=== PATIENT | male | born 2000 | race Hispanic/Latino ===

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

== ENCOUNTER 2020-02-21 10:32 | Emergency (ER) | payer OTHER, SELFPAY ==
--- OUTSIDE RECORDS SUMMARY | 2020-02-21 10:36 | XMS REPORT ---
:2000 [facility] Address [address] [place] [address] [address] [place] [address] Care Team Providers Name Role Phone Unavailable Unavailable Unavailable Problems This patient has no known problems. Allergies, Adverse Reactions, Alerts This patient has no known allergies or adverse reactions. Medications This patient has no known medications. Encounters Start End Encounter Admission Attending Care Care Encounter Date/Time Date/Time Type Type Clinicians Facility Department ID 2019-03-26 2019-03-26 Emergency E [id number] 22:57:00 22:57:00
--- NOTE | 2020-02-21 11:08 | ER ---
Nurse's Notes [facility] Name: Donta Duran Age: 19 yrs Sex: Male : 2000 Arrival Date: 02/21/2020 Time: 10:38 Bed 7 Private MD: Diagnosis: Asthma Presentation: 02/20 10:47 Chief complaint: Patient states: "Was at work, and I felt like I couldn't pull enough ca1 air into my lungs. I have asthma. I felt dizzy too. Called my utilization supervisor, he told me to go get checked by a doctor and be cleared to go back to work". Pt reports, he is out of his inhaler for his asthma. Denies fever, cough and congestion. Coronavirus screen: Patient reports a subjective fever or greater than 100.4F, or cough, or shortness of breath, or difficulty breathing. Surgical mask placed on patient. Patient moved to private room, placed in contact and droplet isolation with eye protection until further assessment. Patient denies travel on a cruise ship or to a country the [facility] currently lists as an affected area. Patient denies contact with known and/or suspected case of COVID-19. Ebola Screen: Patient negative for fever greater than or equal to 101.5 degrees Fahrenheit, and additional compatible Ebola Virus Disease symptoms Patient denies exposure to infectious person. Patient denies travel to an Ebola-affected area in the 21 days before illness onset. No symptoms or risks identified at this time. Initial Sepsis Screen: Does the patient meet any 2 criteria? No. Patient's initial sepsis screen is negative. Does the patient have a suspected source of infection? No. Patient's initial sepsis screen is negative. Risk Assessment: Do you want to hurt yourself or someone else? Patient reports no desire to harm self or others. Onset of symptoms was February 21, 2020. 10:47 Method Of Arrival: Ambulatory ca1 10:47 Acuity: KENYATTA 4 ca1 Historical: - Allergies: 10:51 No Known Allergies; ca1 - Home Meds: 10:51 inhaler use as PRN [Active]; ca1 - PMHx: 10:51 Asthma; ca1 - PSHx: 10:51 Tonsillectomy; Adenoids; ca1 - Immunization history:: Adult Immunizations up to date, Flu vaccine is not up to date. - Social history:: Smoking status: Patient denies any tobacco usage or history of. Vital Signs: 10:47 BP 143 / 96; Pulse 86; Resp 17 S; Temp 97.4(TE); Pulse Ox 100% on R/A; Weight 108.86 kg ca1 (R); Height 5 ft. 8 in. (172.72 cm) (R); Pain 0/10; 10:47 Body Mass Index 36.49 (108.86 kg, 172.72 cm) ca1 ED Course: 10:38 Patient arrived in ED. mr 10:50 Muna Farmer FNP-C [facility]. snw 10:50 Dandre Ma MD is Attending Physician. snw 10:50 Triage completed. ca1 10:51 Arm band placed on right wrist. ca1 12:05 Gloria Burroughs, MARIA ANTONIA is Primary Nurse. sv Administered Medications: No medications were administered Outcome: 11:07 Discharge ordered by . snw 12:05 Patient left the ED. sv Signatures: Gloria Burroughs RN RN Muna Farmer FNP-C FNP-[facility] Raine Crockett mr FloraNubia RN RN ca1
--- NOTE | 2020-02-21 11:08 | EDPHYS ---
Physician Documentation [facility] Name: Donta Duran Age: 19 yrs Sex: Male : 2000 Arrival Date: 02/21/2020 Time: 10:38 Bed 7 Private MD: ED Physician Dandre Ma HPI: 02/20 11:13 This 19 yrs old Male presents to ER via Ambulatory with complaints of snw Breathing Difficulty. 11:13 The patient has shortness of breath at rest. Onset: The symptoms/episode began/occurred snw suddenly. Duration: The symptoms are intermittent. Associated signs and symptoms: Pertinent positives: non-productive cough. Severity of symptoms: At their worst the symptoms were very mild mild. The patient has experienced similar episodes in the past. Historical: - Allergies: 10:51 No Known Allergies; ca1 - Home Meds: 10:51 inhaler use as PRN [Active]; ca1 - PMHx: 10:51 Asthma; ca1 - PSHx: 10:51 Tonsillectomy; Adenoids; ca1 - Immunization history:: Adult Immunizations up to date, Flu vaccine is not up to date. - Social history:: Smoking status: Patient denies any tobacco usage or history of. ROS: 11:12 Constitutional: Negative for fever, chills, and weight loss, Eyes: Negative for injury, snw pain, redness, and discharge, ENT: Negative for injury, pain, and discharge, Neck: Negative for injury, pain, and swelling, Cardiovascular: Negative for chest pain, palpitations, and edema, Abdomen/GI: Negative for abdominal pain, nausea, vomiting, diarrhea, and constipation, Back: Negative for injury and pain, : Negative for injury, bleeding, discharge, and swelling, MS/Extremity: Negative for injury and deformity, Skin: Negative for injury, rash, and discoloration, Neuro: Negative for headache, weakness, numbness, tingling, and seizure, Psych: Negative for depression, anxiety, suicide ideation, homicidal ideation, and hallucinations. 11:12 Respiratory: Positive for cough, with no reported sputum, shortness of breath, at rest. wheezing. Exam: 11:12 Constitutional: This is a well developed, well nourished patient who is awake, alert, snw and in no acute distress. Head/Face: Normocephalic, atraumatic. Eyes: Pupils equal round and reactive to light, extra-ocular motions intact. Lids and lashes normal. Conjunctiva and sclera are non-icteric and not injected. Cornea within normal limits. Periorbital areas with no swelling, redness, or edema. ENT: Nares patent. No nasal discharge, no septal abnormalities noted. Tympanic membranes are normal and external auditory canals are clear. Oropharynx with no redness, swelling, or masses, exudates, or evidence of obstruction, uvula midline. Mucous membranes moist. Neck: Trachea midline, no thyromegaly or masses palpated, and no cervical lymphadenopathy. Supple, full range of motion without nuchal rigidity, or vertebral point tenderness. No Meningismus. Chest/axilla: Normal chest wall appearance and motion. Nontender with no deformity. No lesions are appreciated. Cardiovascular: Regular rate and rhythm with a normal S1 and S2. No gallops, murmurs, or rubs. Normal PMI, no JVD. No pulse deficits. Respiratory: Lungs have equal breath sounds bilaterally, clear to auscultation and percussion. No rales, rhonchi or wheezes noted. No increased work of breathing, no retractions or nasal flaring. Abdomen/GI: Soft, non-tender, with normal bowel sounds. No distension or tympany. No guarding or rebound. No evidence of tenderness throughout. Back: No spinal tenderness. No costovertebral tenderness. Full range of motion. Skin: Warm, dry with normal turgor. Normal color with no rashes, no lesions, and no evidence of cellulitis. MS/ Extremity: Pulses equal, no cyanosis. Neurovascular intact. Full, normal range of motion. Neuro: Awake and alert, GCS 15, oriented to person, place, time, and situation. Cranial nerves II-XII grossly intact. Motor strength 5/5 in all extremities. Sensory grossly intact. Cerebellar exam normal. Normal gait. Psych: Awake, alert, with orientation to person, place and time. Behavior, mood, and affect are within normal limits. Vital Signs: 10:47 BP 143 / 96; Pulse 86; Resp 17 S; Temp 97.4(TE); Pulse Ox 100% on R/A; Weight 108.86 kg ca1 (R); Height 5 ft. 8 in. (172.72 cm) (R); Pain 0/10; 10:47 Body Mass Index 36.49 (108.86 kg, 172.72 cm) ca1 MDM: 10:54 Patient medically screened. snw 11:13 Data reviewed: vital signs, nurses notes. Data interpreted: Pulse oximetry: on room air snw is 100 %. Interpretation: normal. Counseling: I had a detailed discussion with the patient and/or guardian regarding: the historical points, exam findings, and any diagnostic results supporting the discharge/admit diagnosis, the presence of at least one elevated blood pressure reading (>120/80) during this emergency department visit, the need for outpatient follow up, to return to the emergency department if symptoms worsen or persist or if there are any questions or concerns that arise at home. Special discussion: Based on the history and exam findings, there is no indication for further emergent testing or inpatient evaluation. I discussed with the patient/guardian the need to see the primary care provider for further evaluation of the symptoms. 11:42 ED course: Quarantine x 14 days as recommended by Reanna Rivera. snw Administered Medications: No medications were administered Disposition: 12:16 Co-signature as Attending Physician, Dandre Ma MD. rn Disposition: 02/21/20 11:07 Discharged to Home. Impression: Asthma. - Condition is Stable. - Discharge Instructions: Asthma, Adult, Asthma Attack Prevention, Adult. - Prescriptions for Albuterol Sulfate 90 mcg/actuation - inhale 1-2 puff by INHALATION route every 4-6 hours; 1 Inhaler. - Medication Reconciliation Form, Thank You Letter, Antibiotic Education, Prescription Opioid Use form. - Follow up: Emergency Department; When: As needed; Reason: Worsening of condition. Follow up: Private Physician; When: 2 - 3 days; Reason: Recheck today's complaints, Continuance of care, Re-evaluation by your physician. - Notes: Quarantine x 2 weeks as suggested during pandemic Signatures: Gloria Burroughs RN RN Muna Allen, SOFT WORK CIGAR MACHINE OPERATOR-C SOFT WORK CIGAR MACHINE OPERATOR-Andersw Dandre Ma MD MD rn FredrickobNubia RN RN ca1 Corrections: (The following items were deleted from the chart) 12:05 11:07 02/21/2020 11:07 Discharged to Home. Impression: Asthma. Condition is Stable. sv Forms are Medication Reconciliation Form, Thank You Letter, Antibiotic Education, Prescription Opioid Use. Follow up: Emergency Department; When: As needed; Reason: Worsening of condition. Follow up: Private Physician; When: 2 - 3 days; Reason: Recheck today's complaints, Continuance of care, Re-evaluation by your physician. snw
[2020-02-21 12:11] VITALS: BP 143/96; TEMP 97.4; O2SAT 100
== END 2020-02-21 12:05 | disposition home or self-care (01) ==
LOC: ER 10:32
DX: J45.909 Unspecified asthma, uncomplicated (principal)
CPT/HCPCS: 99281

== ENCOUNTER 2020-08-21 18:25 | Emergency (ER) | payer OTHER ==
--- OUTSIDE RECORDS SUMMARY | 2020-08-21 18:27 | XMS REPORT | Clinical Summary ---
:2000 Author Organization [facility] Address [address] [place] [address] Care Team Providers Name Role Phone Asked, No Pcp Primary Care Provider Unavailable Allergies No Known Active Allergies Medications No known medications Active Problems Not on file Social History Tobacco Use Types Packs/Day Years Used Date Never Smoker Smokeless Tobacco: Never Used Alcohol Use Drinks/Week oz/Week Comments No Alcohol Habits Answer Date Recorded How often do you have a drink containing alcohol? Never 01/26/2019 How many drinks containing alcohol do you have on a typical Not asked day when you are drinking? How often do you have six or more drinks on one occasion? No t asked Sex Assigned at Date Recorded Not on file Last Filed Vital Signs Not on file Plan of Treatment Health Maintenance Due Date Last Done Comments INFLUENZA VACCINE 08/01/2020 Results Not on fileafter 08/21/2019 Advance Directives For more information, please contact: [phone] Type Date Recorded Patient Senior It Recruiter Explanati on Advance Directives, Living Will 01/25/2019 11:43 PM and Medical Power of Data Conversion Operator
--- OUTSIDE RECORDS SUMMARY | 2020-08-21 18:27 | XMS REPORT | Continuity of Care Document ---
:2000 Author Organization [facility] t Address [address] [place] [address] Care Team Providers Name Role Phone Asked, No Pcp Primary Care Physician Unavailable Pcp, Does Not Have A Attending Clinician Problems This patient has no known problems. Allergies, Adverse Reactions, Alerts This patient has no known allergies or adverse reactions. Social History Social Habit Start Date Stop Date Quantity Comments Source History [facility] odist Alcohol Std Drinks History [facility] Alcohol Binge Sex Assigned At [facility] ethodist Tobacco use and 2019-01-26 2019-01-26 Never used [facility]ist exposure 00:00:00 00:00:00 Alcohol intake 2019-01-26 2019-01-[address] [facility] thodist 00:00:00 00:00:00 non-drinker of alcohol (finding) History [facility] 2019-01-26 2019-01-26 1 [place] [facility] Alcohol Frequency 00:00:00 00:00:00 Smoking Status Start Date Stop Date Source [facility] sm[facility] Medications This patient has no known medications. Procedures This patient has no known procedures. Plan of Care Planned Activity Planned Date Details Comments Source Future Scheduled 2020-08-01 INFLUENZA VACCINE Ben Estrada Test 00:00:00 [code = INFLUENZA VACCINE] Encounters Start End Encounter Admission Attending Care Care Encounter Source Date/Time Date/Time Type Type Clinicians Facility Department ID 2020-02-24 2020-02-24 Nurse PcpMIKE [id number] 00:00:00 00:00:00 Triage Patient EDWINA [id number] Does Not HOSPITAL [id number] Have A [id number] 2019-03-26 2019-03-26 Emergency E MHBL [facility]BL [id number] 22:57:00 22:57:00 Results This patient has no known results.
[2020-08-21 19:20] LABS: Absolute Lymphocytes (CBC) 2.9 K/uL (0.7-4.9); Basophils % 0.6 % (0-1.3); Hematocrit 46.8 % (39.6-49.0); Lymphocytes % 26.8 % (15.3-44.8); MPV 8.2 fL (7.6-11.3); RBC Red Blood Cell Count 5.58 M/uL (4.33-5.43)
[2020-08-21 19:30] LABS: Urine Blood NEGATIVE (NEG); Urine Glucose NEGATIVE (NEG); Urine Protein NEGATIVE (NEG); Urine Specific Gravity 1.025 (1.005-1.030)
[2020-08-21 19:39] LABS: ALT/SGPT 51 U/L (12-78); AST/SGOT 22 U/L (15-37); Albumin 3.9 g/dL (3.4-5.0); Alkaline Phosphatase 87 U/L (45-117); BUN Blood Urea Nitrogen 13 mg/dL (7-18); Bicarbonate 25 mmol/L (21-32); Bilirubin Direct < 0.1 mg/dL (0-0.2); Bilirubin Total 0.5 mg/dL (0.2-1.0); Glucose Level 120 mg/dL (74-106); Lipase 127 U/L (73-393); Potassium 4.1 mmol/L (3.5-5.1); Protein, Total 8.5 g/dL (6.4-8.2); Sodium Level 139 mmol/L (136-145)
[2020-08-21 19:48] LABS: Urine Bacteria <20 /HPF (NONE SEEN); Urine Culture Reflex Order NOT NEEDED; Urine RBC <5 /HPF (NONE SEEN)
--- NOTE | 2020-08-21 20:08 | EDPHYS ---
Physician Documentation [facility] Name: Donta Duran Age: 20 yrs Sex: Male : 2000 Arrival Date: 08/21/2020 Time: 18:27 Bed 14 Private MD: ED Physician Dandre Ma HPI: 08/21 20:08 This 20 yrs old Male presents to ER via Ambulatory with complaints of jr8 Diarrhea, Nausea, Penile Pain. 20:08 The patient presents to the emergency department with nausea, diarrhea. Onset: The jr8 symptoms/episode began/occurred gradually, 1 week(s) ago. Possible causes: unknown. The symptoms are aggravated by food , The symptoms are alleviated by nothing. Associated signs and symptoms: Pertinent positives: dysuria. Severity of symptoms: At their worst the symptoms were mild in the emergency department the symptoms are unchanged. The patient has not experienced similar symptoms in the past. The patient has not recently seen a physician. Stated that the pain and dysuria has resolved but still with diarrhea that has been persistent for over a week now . Historical: - Allergies: 18:40 No Known Allergies; ca1 - Home Meds: 18:40 inhaler use as PRN [Active]; ca1 - PMHx: 18:40 Asthma; ca1 - PSHx: 18:40 Tonsillectomy; Adenoids; ca1 - Immunization history:: Adult Immunizations up to date. - Social history:: Smoking status: Patient denies any tobacco usage or history of. ROS: 20:08 Eyes: Negative for injury, pain, redness, and discharge, ENT: Negative for injury, jr8 pain, and discharge, Neck: Negative for injury, pain, and swelling, Cardiovascular: Negative for chest pain, palpitations, and edema, Respiratory: Negative for shortness of breath, cough, wheezing, and pleuritic chest pain, Back: Negative for injury and pain, MS/Extremity: Negative for injury and deformity, Skin: Negative for injury, rash, and discoloration, Neuro: Negative for headache, weakness, numbness, tingling, and seizure. 20:08 Abdomen/GI: Positive for nausea, diarrhea, abdominal cramps, Negative for vomiting, hematemesis, black/tarry stool, rectal pain, rectal bleeding, bowel incontinence, flatulence. 20:08 : Positive for urinary symptoms. Exam: 20:08 Constitutional: This is a well developed, well nourished patient who is awake, alert, jr8 and in no acute distress. Cardiovascular: Regular rate and rhythm with a normal S1 and S2. No gallops, murmurs, or rubs. Normal PMI, no JVD. No pulse deficits. Respiratory: Lungs have equal breath sounds bilaterally, clear to auscultation and percussion. No rales, rhonchi or wheezes noted. No increased work of breathing, no retractions or nasal flaring. Abdomen/GI: Soft, non-tender, with normal bowel sounds. No distension or tympany. No guarding or rebound. No evidence of tenderness throughout. Back: No spinal tenderness. No costovertebral tenderness. Full range of motion. Skin: Warm, dry with normal turgor. Normal color with no rashes, no lesions, and no evidence of cellulitis. MS/ Extremity: Pulses equal, no cyanosis. Neurovascular intact. Full, normal range of motion. Neuro: Awake and alert, GCS 15, oriented to person, place, time, and situation. Cranial nerves II-XII grossly intact. Motor strength 5/5 in all extremities. Sensory grossly intact. Cerebellar exam normal. Normal gait. Vital Signs: 18:36 BP 162 / 98; Pulse 92; Resp 16 S; Temp 98.8(O); Pulse Ox 98% on R/A; Weight 108.86 kg ca1 (R); Height 5 ft. 8 in. (172.72 cm) (R); Pain 4/10; 20:00 BP 138 / 69; Pulse 76; Resp 16; Temp 98.1; Pulse Ox 99% on R/A; Pain 5/10; fu 18:36 Body Mass Index 36.49 (108.86 kg, 172.72 cm) ca1 MDM: 18:47 Patient medically screened. jr8 20:06 Data reviewed: vital signs, nurses notes, lab test result(s), and as a result, I will [facility] discharge patient. Data interpreted: Pulse oximetry: on room air is 98 %. Interpretation: normal. Counseling: I had a detailed discussion with the patient and/or guardian regarding: the historical points, exam findings, and any diagnostic results supporting the discharge/admit diagnosis, lab results, the need for outpatient follow up, a steam tender, to return to the emergency department if symptoms worsen or persist or if there are any questions or concerns that arise at home. Special discussion: Based on the patient's Hx, exam, and Dx evaluation, there is no indication for emergent surgery or inpatient Tx. It is understood by the patient/guardian that if the Sx's persist or worsen they need to return immediately for re-evaluation. 08/21 18:47 Order name: Basic Metabolic Panel; Complete Time: 20:06 08/21 18:47 Order name: CBC with Diff; Complete Time: 20:06 08/21 18:47 Order name: Hepatic Function; Complete Time: 20:06 08/21 18:47 Order name: Lipase; Complete Time: 20:06 08/21 18:47 Order name: Urine Microscopic Only; Complete Time: 20:08/21 19:12 Order name: Urine Dipstick--Ancillary (enter results); Complete Time: 20: tt3 08/21 18:47 Order name: IV Saline Lock; Complete Time: 19:12 08/21 18:47 Order name: Labs collected and sent; Complete Time: 19:12 08/21 18:47 Order name: Urine Dipstick-Ancillary (obtain specimen); Complete Time: 19:12 Administered Medications: No medications were administered Disposition: 08/22 07:03 Co-signature as Attending Physician, Dandre Ma MD. rn Disposition: 08/21/20 20:07 Discharged to Home. Impression: Diarrhea, unspecified, Nausea, Gastroenteritis. - Condition is Stable. - Discharge Instructions: Food Choices to Help Relieve Diarrhea, Adult, Diarrhea, Adult, Nausea and Vomiting, Adult. - Prescriptions for Bentyl 20 mg Oral Tablet - take 1 tablet by ORAL route every 6 hours As needed; 20 tablet. Cipro 500 mg Oral Tablet - take 1 tablet by ORAL route every 12 hours for 10 days; 20 tablet. Flagyl 500 mg Oral Tablet - take 1 tablet by ORAL route every 6 hours for 10 days; 40 tablet. Zofran 4 mg Oral Tablet - take 1 tablet by ORAL route every 12 hours As needed; 20 tablet. - Medication Reconciliation Form, Thank You Letter, Antibiotic Education, Prescription Opioid Use form. - Follow up: Doug Sage MD; When: 1 week; Reason: If symptoms return, Recheck today's complaints, Continuance of care, Re-evaluation by your physician. - Problem is new. - Symptoms have improved. Signatures: Dispatcher [employer] EDDandre Lyons MD MD rn Roszak, Josh, PA PA jr8 Syd Smith RN RN fu Acob, Cheryl, RN RN ca1 Corrections: (The following items were deleted from the chart) 08/21 20:08 20:07 08/21/2020 20:07 Discharged to Home. Impression: Diarrhea, unspecified; Nausea. jr8 Condition is Stable. Forms are Medication Reconciliation Form, Thank You Letter, Antibiotic Education, Prescription Opioid Use. Follow up: Doug Sage; When: 1 week; Reason: If symptoms return, Recheck today's complaints, Continuance of care, Re-evaluation by your physician. Problem is new. Symptoms have improved. jr8 20:29 20:08 08/21/2020 20:07 Discharged to Home. Impression: Diarrhea, unspecified; Nausea; fu Gastroenteritis. Condition is Stable. Discharge Instructions: Food Choices to Help Relieve Diarrhea, Adult, Diarrhea, Adult, Nausea and Vomiting, Adult. Prescriptions for Bentyl 20 mg Oral Tablet - take 1 tablet by ORAL route every 6 hours As needed; 20 tablet, Cipro 500 mg Oral Tablet - take 1 tablet by ORAL route every 12 hours for 10 days; 20 tablet, Flagyl 500 mg Oral Tablet - take 1 tablet by ORAL route every 6 hours for 10 days; 40 tablet, Zofran 4 mg Oral Tablet - take 1 tablet by ORAL route every 12 hours As needed; 20 tablet. and Forms are Medication Reconciliation Form, Thank You Letter, Antibiotic Education, Prescription Opioid Use. Follow up: Doug Sage; When: 1 week; Reason: If symptoms return, Recheck today's complaints, Continuance of care, Re-evaluation by your physician. Problem is new. Symptoms have improved. jr8
--- NOTE | 2020-08-21 20:08 | ER ---
Nurse's Notes [facility] Name: Donta Duran Age: 20 yrs Sex: Male : 2000 Arrival Date: 08/21/2020 Time: 18:27 Bed 14 Private MD: Diagnosis: Diarrhea, unspecified;Nausea;Gastroenteritis Presentation: 08/21 18:36 Chief complaint: Patient states: Nausea and diarrhea x 1 week. Lower abdominal pain x 1 ca1 week. R Testicular pain x 1 week, denies swelling on the scrotum. Coronavirus screen: Client denies travel out of the [place] in the last 14 days. At this time, the client does not indicate any symptoms associated with coronavirus-19. Ebola Screen: Patient negative for fever greater than or equal to 101.5 degrees Fahrenheit, and additional compatible Ebola Virus Disease symptoms Patient denies exposure to infectious person. Patient denies travel to an Ebola-affected area in the 21 days before illness onset. No symptoms or risks identified at this time. Initial Sepsis Screen: Does the patient meet any 2 criteria? No. Patient's initial sepsis screen is negative. Does the patient have a suspected source of infection? No. Patient's initial sepsis screen is negative. Risk Assessment: Do you want to hurt yourself or someone else? Patient reports no desire to harm self or others. Onset of symptoms was August 21, 2020. 18:36 Method Of Arrival: Ambulatory ca1 18:36 Acuity: KENYATTA 3 ca1 Historical: - Allergies: 18:40 No Known Allergies; ca1 - Home Meds: 18:40 inhaler use as PRN [Active]; ca1 - PMHx: 18:40 Asthma; ca1 - PSHx: 18:40 Tonsillectomy; Adenoids; ca1 - Immunization history:: Adult Immunizations up to date. - Social history:: Smoking status: Patient denies any tobacco usage or history of. Screenin:13 Abuse screen: Denies threats or abuse. Denies injuries from another. Nutritional mg2 screening: No deficits noted. Tuberculosis screening: No symptoms or risk factors identified. Fall Risk IV access (20 points). Assessment: 19:12 General: Appears in no apparent distress. comfortable, Behavior is calm, cooperative. mg2 Pain:. Neuro: Level of Consciousness is awake, alert, obeys commands, Oriented to person, place, time, situation. Cardiovascular: Capillary refill < 3 seconds Patient's skin is warm and dry. Respiratory: Airway is patent Respiratory effort is even, unlabored, Respiratory pattern is regular, symmetrical. GI: Abdomen is non-distended, Reports diarrhea, nausea, vomiting, since 1 week ago. EENT: No signs and/or symptoms were reported regarding the EENT system. Derm: Skin is intact, is healthy with good turgor, Skin is pink, warm \T\ dry. normal. Musculoskeletal: Circulation, motion, and sensation intact. Capillary refill < 3 seconds. Vital Signs: 18:36 BP 162 / 98; Pulse 92; Resp 16 S; Temp 98.8(O); Pulse Ox 98% on R/A; Weight 108.86 kg ca1 (R); Height 5 ft. 8 in. (172.72 cm) (R); Pain 4/10; 20:00 BP 138 / 69; Pulse 76; Resp 16; Temp 98.1; Pulse Ox 99% on R/A; Pain 5/10; fu 18:36 Body Mass Index 36.49 (108.86 kg, 172.72 cm) ca1 ED Course: 18:27 Patient arrived in ED. ds1 18:39 Triage completed. ca1 18:40 Arm band placed on right wrist. ca1 18:45 Juanis Hartmann, MARIA ANTONIA is Primary Nurse. ll1 18:45 Anupam Gandhi PA is PHCP. jr8 18:46 Dandre Ma MD is Attending Physician. jr8 19:13 Patient has correct armband on for positive identification. mg2 19:13 No provider procedures requiring assistance completed. Inserted saline lock: 20 gauge mg2 in right antecubital area, using aseptic technique. Blood collected. 20:07 Doug Sage MD is Referral Physician. jr8 20:20 IV discontinued, bleeding controlled, Pressure dressing applied. fu Administered Medications: No medications were administered Outcome: 20:07 Discharge ordered by . jr8 20:20 Discharged to home ambulatory. fu 20:20 Condition: good 20:20 Discharge instructions given to patient, Instructed on discharge instructions, follow fu up and referral plans. Demonstrated understanding of instructions, Prescriptions given X 2, 4. 20:29 Patient left the ED. fu Signatures: Yareli Warren ds1 Anupam Gandhi PA PA jr8 Syd Smith, RN Manuel Ohara RN MARIA ANTONIA mg2 Nubia Hines RN MARIA ANTONIA ca1 Juanis Hartmann RN RN ll1 Corrections: (The following items were deleted from the chart) 08/22 03:01 08/21 20:20 Discharge instructions given to patient, Instructed on discharge fu instructions, follow up and referral plans. Demonstrated understanding of instructions, Prescriptions given X 2, fu
[2020-08-21 20:34] VITALS: BP 162/98; TEMP 98.8; O2SAT 98
== END 2020-08-21 20:29 | disposition home or self-care (01) ==
LOC: ER 18:25
DX: K52.9 Noninfective gastroenteritis and colitis, unspecified (principal); R11.0 Nausea
CPT/HCPCS: 36415; 80048; 80076; 81003; 81015; 83690; 85025; 99283

== ENCOUNTER 2022-06-12 23:49 | Emergency (ER) | payer OTHER, SELFPAY ==
--- NOTE | 2022-06-13 00:39 | EDPHYS ---
Physician Documentation [facility] Name: Donta Duran Age: 21 yrs Sex: Male : 2000 Arrival Date: 06/12/2022 Time: 23:54 Bed Waiting Private MD: ED Physician Louie Brunner HPI: 06/13 00:38 This 21 yrs old Male presents to ER via Ambulatory with complaints of Sore ms3 Throat. 00:38 The patient presents with sore throat. The patient describes throat pain as burning. ms3 Onset: The symptoms/episode began/occurred 2 day(s) ago. Severity of symptoms: At their worst the symptoms were moderate, in the emergency department the symptoms are unchanged. Modifying factors: The symptoms are alleviated by nothing, the symptoms are aggravated by nothing, Patient's oral intake status: good. Associated signs and symptoms: Pertinent negatives chills, fever. Historical: - Allergies: 00:42 No Known Allergies; vc1 - Home Meds: 00:42 inhaler use as PRN [Active]; vc1 - PMHx: 00:42 Asthma; vc1 - PSHx: 00:42 Tonsillectomy; vc1 - Immunization history:: Adult Immunizations up to date, Client reports receiving the 2nd dose of the Covid vaccine. - Social history:: Smoking status: Reported history of juuling and/or vaping. ROS: 00:38 Constitutional: Negative for fever, and chills. Cardiovascular: Negative for chest ms3 pain, and palpitations. Respiratory: Negative for shortness of breath, cough, wheezing, and pleuritic chest pain, Abdomen/GI: Negative for abdominal pain, nausea, vomiting, diarrhea, and constipation, MS/Extremity: Negative for injury and deformity, Skin: Negative for injury, rash, and discoloration. 00:38 ENT: Positive for sore throat. 00:38 All other systems are negative. 00:38 ENT: Positive for nasal discharge, rhinorrhea. ms3 Exam: 00:38 Constitutional: This is a well developed, well nourished patient who is awake, alert, ms3 and in no acute distress. Eyes: Pupils equal round and reactive to light, extra-ocular motions intact. Lids and lashes normal. Conjunctiva and sclera are non-icteric and not injected. Periorbital areas with no swelling, redness, or edema. 00:38 Back: No spinal tenderness. No costovertebral tenderness. Full range of motion. Skin: Warm, dry with normal turgor. Normal color with no rashes, no lesions, and no evidence of cellulitis. Neuro: Awake and alert, GCS 15, oriented to person, place, time, and situation. Cranial nerves II-XII grossly intact. Motor strength 5/5 in all extremities. Sensory grossly intact. Cerebellar exam normal. Normal gait. Psych: Awake, alert, with orientation to person, place and time. Behavior, mood, and affect are within normal limits. 00:38 ENT: Posterior pharynx: Uvula: normal, midline, non-edematous, no erythema, swelling, is not appreciated, erythema, that is moderate, exudate, is not appreciated. Vital Signs: 00:41 Weight 133.81 kg; Height 5 ft. 8 in. (172.72 cm); Pain 8/10; vc1 00:45 BP 147 / 103; Pulse 85; Resp 18; Temp 99.2; Pulse Ox 99% on R/A; vc1 00:41 Body Mass Index 44.85 (133.81 kg, 172.72 cm) vc1 MDM: 00:28 Patient medically screened. ms3 00:38 Differential diagnosis: tonsillitis, upper respiratory infection, viral syndrome. Data ms3 reviewed: vital signs, nurses notes, and as a result, I will discharge patient. Counseling: I had a detailed discussion with the patient and/or guardian regarding: the historical points, exam findings, and any diagnostic results supporting the discharge/admit diagnosis, the need for outpatient follow up, to return to the emergency department if symptoms worsen or persist or if there are any questions or concerns that arise at home. ED course: Discussed physical exam findings with patient. Patient to follow-up with primary care physician in 2 to 3 days. Patient understands and agrees with plan. All questions were answered. Return precautions discussed include worsening symptoms, or any other concerns. . Administered Medications: No medications were administered Disposition Summary: 06/13/22 00:38 Discharge Ordered Location: Home ms3 Condition: Stable ms3 Diagnosis - Pain in throat ms3 - Acute upper respiratory infection, unspecified ms3 Followup: ms3 - With: Rodriguez, Jefe, DO - When: 2 - 3 days - Reason: Re-evaluation by your physician Discharge Instructions: - Discharge Summary Sheet ms3 - Upper Respiratory Infection, Adult ms3 Forms: - Medication Reconciliation Form ms3 - Thank You Letter ms3 - Antibiotic Education ms3 - Prescription Opioid Use ms3 - Work release form vc1 Prescriptions: - Flonase Allergy Relief 50 mcg/actuation Nasal spray,suspension - spray 2 spray by INTRANASAL route once daily as needed; 1 Unspecified; Refills: cp 0, Product Selection Permitted - Claritin 10 mg Oral Tablet - take 1 tablet by ORAL route once daily As needed; 30 tablet; Refills: 0, ms3 Product Selection Permitted Signatures: Louie Brunner DO DO ms3 Fidelina Norman, RN RN vc1
--- NOTE | 2022-06-13 00:57 | ER ---
Nurse's Notes [facility] Name: Donta Duran Age: 21 yrs Sex: Male : 2000 Arrival Date: 06/12/2022 Time: 23:54 Bed Waiting Private MD: Diagnosis: Pain in throat;Acute upper respiratory infection, unspecified Presentation: 06/13 00:41 Chief complaint: Patient states: "I came for a sore throat.". Coronavirus screen: vc1 Vaccine status: Patient reports receiving the 2nd dose of the covid vaccine. Pfizer headache, sore throat, Client presents with at least one sign or symptom that may indicate coronavirus-19. Standard/surgical mask placed on the client. Provider contacted for isolation considerations. Ebola Screen: No symptoms or risks identified at this time. Risk Assessment: Do you want to hurt yourself or someone else? Patient reports no desire to harm self or others. Onset of symptoms was June 10, 2022. 00:41 Method Of Arrival: Ambulatory vc1 00:41 Acuity: KENYATTA 3 vc1 00:41 Acuity: KENYATTA 4 vc1 Triage Assessment: 00:43 General: Appears in no apparent distress. uncomfortable, ill, Behavior is calm, vc1 cooperative, appropriate for age. Pain: Complains of pain in throat Pain does not radiate. Pain currently is 8 out of 10 on a pain scale. Quality of pain is described as sharp, Pain began suddenly. EENT: Throat Reports pain when swallowing. Neuro: No deficits noted. Cardiovascular: Patient's skin is warm and dry. Respiratory: Airway is patent Respiratory effort is even, unlabored, Respiratory pattern is regular, symmetrical. GI: No deficits noted. : No deficits noted. Derm: No deficits noted. Musculoskeletal: No deficits noted. Historical: - Allergies: 00:42 No Known Allergies; vc1 - Home Meds: 00:42 inhaler use as PRN [Active]; vc1 - PMHx: 00:42 Asthma; vc1 - PSHx: 00:42 Tonsillectomy; vc1 - Immunization history:: Adult Immunizations up to date, Client reports receiving the 2nd dose of the Covid vaccine. - Social history:: Smoking status: Reported history of juuling and/or vaping. Screenin:45 Abuse screen: Denies threats or abuse. Nutritional screening: No deficits noted. vc1 Tuberculosis screening: No symptoms or risk factors identified. Fall Risk None identified. Vital Signs: 00:41 Weight 133.81 kg; Height 5 ft. 8 in. (172.72 cm); Pain 8/10; vc1 00:45 BP 147 / 103; Pulse 85; Resp 18; Temp 99.2; Pulse Ox 99% on R/A; vc1 00:41 Body Mass Index 44.85 (133.81 kg, 172.72 cm) vc1 ED Course: 06/12 23:54 Patient arrived in ED. ja2 06/13 00:04 Louie Brunner DO is Attending Physician. ms3 00:37 Jefe Rodriguez DO is Referral Physician. ms3 00:42 Triage completed. vc1 00:42 Arm band placed on right wrist. vc1 Administered Medications: No medications were administered Outcome: 00:38 Discharge ordered by . ms3 00:57 Patient left the ED. vc1 Signatures: Louie Brunner DO DO ms3 Rebeka Vicente ja2 Fidelina Norman, RN RN vc1
[2022-06-13 01:12] VITALS: BP 147/103; TEMP 99.2; O2SAT 99
== END 2022-06-13 00:57 | disposition home or self-care (01) ==
LOC: ER 23:49
DX: J06.9 Acute upper respiratory infection, unspecified (principal); J45.909 Unspecified asthma, uncomplicated
CPT/HCPCS: 99281

== ENCOUNTER 2024-07-05 19:22 | Emergency (ER) | payer SELFPAY ==
[2024-07-05] MEDS ORDERED: DIPHENHYDRAMINE 50 MG/ML VIAL ONE (20:28)
[2024-07-05] MEDS ORDERED: NA CHLORIDE 0.9% 1,000 ML ONE (20:28)
[2024-07-05] MEDS ORDERED: METOCLOPRAMIDE 10 MG/2mL INJ ONE (20:28)
[2024-07-05] MEDS ORDERED: NA CHLORIDE 0.9% 100 ML ONE (20:28)
[2024-07-05] MEDS ORDERED: KETOROLAC 30 MG/ML INJ ONE (20:28)
--- NOTE | 2024-07-05 21:20 | RAD REPORT ---
EXAM DESCRIPTION: CT - Head Brain Wo Cont - 07/05/2024 9:04 pm CLINICAL HISTORY: Headache COMPARISON: none TECHNIQUE: Computed axial tomography of the head was obtained. IV contrast was not requested. All CT scans are performed using dose optimization technique as appropriate and may include automated exposure control or mA/KV adjustment according to patient size. FINDINGS: An intracranial bleed is not seen The ventricles are normal in caliber No significant hypodense areas within the brain visualized No extra-axial fluid collection is noted. Fluid within the sinuses/ mastoids is not seen IMPRESSION: No acute intracranial abnormality is seen If patient's symptoms persist MRI of the brain would be recommended
--- NOTE | 2024-07-05 21:23 | EDPHYS ---
Physician Documentation [facility] Name: Donta Duran Age: 23 yrs Sex: Male : 2000 Arrival Date: 07/05/2024 Time: 19:22 Bed 11 Private MD: ED Physician Abby Mac HPI: 07/05 20:21 This 23 yrs old Male presents to ER via Ambulatory with complaints of Headache.sb4 20:21 The patient complains of pain to the left occipital area and right occipital area. sb4 patient states 6 months ago he fell and hit the back of his head. reports intermittent headaches in that area since then but the headache has been constant over the past few days. he has not taken any OTC medications for the pain. denies any blurry vision, dizziness, nausea, neck stiffness, photophobia. Historical: - Allergies: 19:45 No Known Allergies; jj7 - PMHx: 19:45 Asthma; jj7 - PSHx: 19:45 Tonsillectomy; jj7 - Immunization history:: Adult Immunizations not up to date, Client reports receiving the 2nd dose of the Covid vaccine, Flu vaccine is not up to date. - Infectious Disease History:: Denies. - Social history:: Smoking status: Reported history of juuling and/or vaping. Patient/guardian denies using alcohol, street drugs. ROS: 20:21 Constitutional: Negative for fever, chills, and weight loss, sb4 20:21 Neuro: Positive for headache, 20:21 All other systems are negative, Exam: 20:21 Constitutional: This is a well developed, well nourished patient who is awake, alert, sb4 and in no acute distress. Head/Face: Normocephalic, atraumatic. Eyes: Extra-ocular motions intact. Periorbital areas with no swelling, redness, or edema. ENT: Mucous membranes moist. Cardiovascular: Regular rate and rhythm with a normal S1 and S2. Respiratory: Lungs have equal breath sounds bilaterally, clear to auscultation and percussion. No rales, rhonchi or wheezes noted. No increased work of breathing, no retractions or nasal flaring. Abdomen/GI: Soft, non-tender, no distension. Skin: Warm, dry with normal turgor. Normal color with no rashes, no lesions, and no evidence of cellulitis. MS/ Extremity: Pulses equal, no cyanosis. Neurovascular intact. Full, normal range of motion. Neuro: Awake and alert, GCS 15, oriented to person, place, time, and situation. Motor strength 5/5 in all extremities. Sensory grossly intact. Vital Signs: 19:40 BP 163 / 86; Pulse 100; Resp 18; Temp 97.3; Pulse Ox 97% ; Weight 131.54 kg; Height 5 jj7 ft. 7 in. ; Pain 7/10; 21:42 BP 148 / 78; Pulse 92; Resp 18; Pulse Ox 98% ; vc1 19:40 Body Mass Index 45.42 (131.54 kg, 170.18 cm) [facility] 19:40 Pain Scale: [facility] [place] Coma Score: 21:22 Eye Response: spontaneous(4). Motor Response: obeys commands(6). Verbal Response: sb4 oriented(5). Total: 15. MDM: 19:48 Patient medically screened. sb4 21:22 Data reviewed: vital signs, nurses notes, radiologic studies, and as a result, I will sb4 discharge patient. Counseling: I had a detailed discussion with the patient and/or guardian regarding the historical points, exam findings, and any diagnostic results supporting the discharge/admit diagnosis, radiology results, to return to the emergency department if symptoms worsen or persist or if there are any questions or concerns that arise at home. 07/05 20:21 Order name: Head Brain Wo Cont CT; Complete Time: 21:20 sb4 07/05 20:21 Order name: IV Start; Complete Time: 20:44 sb4 Administered Medications: 20:44 Drug: NS 0.9% IV 1000 ml IV at 1 bolus Per protocol; 1000 mL bolus Route: IV; Rate: 1 vc1 bolus; Site: right antecubital; 20:44 Drug: Ketorolac IVP 30 mg IVP once Route: IVP; Site: right antecubital; vc1 20:44 Drug: metoCLOPramide IVP 10 mg IVP once; over 1 to 2 minutes Route: IVP; Site: right vc1 antecubital; 20:44 Drug: diphenhydrAMINE IVP 25 mg IVP once Route: IVP; Site: right antecubital; vc1 Disposition Summary: 07/05/24 21:23 Discharge Ordered Notes: Location: Home sb4 Problem: an ongoing problem sb4 Symptoms: have improved sb4 Condition: Stable sb4 Diagnosis - Headache sb4 Followup: sb4 - With: Dieudonne Lu MD - When: As needed - Reason: Recheck today's complaints, Re-evaluation by your physician Discharge Instructions: - Discharge Summary Sheet sb4 - General Headache Without Cause sb4 Forms: - Patient Portal Instructions sb4 - Leadership Thank You Letter sb4 Signatures: Dispatcher [employer] Fidelina Llanes RN RN vc1 Jefferson Armenta RN RN jj7 Katherine Graff, PARobert PARobert sb4
--- NOTE | 2024-07-05 21:23 | ER ---
Nurse's Notes [facility] Name: Donta Duran Age: 23 yrs Sex: Male : 2000 Arrival Date: 07/05/2024 Time: 19:22 Bed 11 Private MD: Diagnosis: Headache Presentation: 07/05 19:40 Chief complaint: Patient states: PAIN IN THE BACK OF HIS HEAD ON AND OFF FOR 2 WEEKS. jj7 CONSTANT THE LAST 4 DAYS. STATES HE FELL BACK IN [place]. HE [place] AND HIT THE BACK OF HIS HEAD. THINKS THAT WAS STARTED THIS. Coronavirus screen: At this time, the client does not indicate any symptoms associated with coronavirus-19. Ebola Screen: No symptoms or risks identified at this time. Initial Sepsis Screen: Does the patient meet any 2 criteria? HR > 90 bpm. Yes Does the patient have a suspected source of infection? No. Patient's initial sepsis screen is negative. Risk Assessment: Do you want to hurt yourself or someone else? Patient reports no desire to harm self or others. 19:40 Method Of Arrival: Ambulatory [facility] 19:40 Acuity: KENYATTA 3 jj7 Triage Assessment: 19:45 Headache History: Denies prior headaches. General: Appears in no apparent distress. jj7 comfortable, Behavior is calm, cooperative, appropriate for age. Pain: Complains of pain in scalp Pain currently is 7 out of 10 on a pain scale. Pain began 2 WKS AGO Also complains of no other associated symptoms. Neuro: Denies headache. Historical: - Allergies: 19:45 No Known Allergies; jj7 - PMHx: 19:45 Asthma; jj7 - PSHx: 19:45 Tonsillectomy; jj7 - Immunization history:: Adult Immunizations not up to date, Client reports receiving the 2nd dose of the Covid vaccine, Flu vaccine is not up to date. - Infectious Disease History:: Denies. - Social history:: Smoking status: Reported history of juuling and/or vaping. Patient/guardian denies using alcohol, street drugs. Screenin:47 [place] ED Fall Risk Assessment (Adult) History of falling in the last 3 months, j7 including since admission No falls in past 3 months (0 pts) Confusion or Disorientation No (0 pts) Intoxicated or Sedated No (0 pts) Impaired Gait No (0 pts) Mobility Assist Device Used No (0 pt) Altered Elimination No (0 pt) Score/Fall Risk Level 0 - 2 = Low Risk Oriented to surroundings, Maintained a safe environment, Educated pt \T\ family on fall prevention, incl call for assistance when getting out of bed. Abuse screen: Denies threats or abuse. Nutritional screening: No deficits noted. Tuberculosis screening: No symptoms or risk factors identified. Assessment: 21:37 Reassessment: Patient appears in no apparent distress at this time. Patient and/or vc1 family updated on plan of care and expected duration. Pain level reassessed. Patient is alert, oriented x 3, equal unlabored respirations, skin warm/dry/pink. Patient denies pain at this time. Patient states feeling better. Patient states symptoms have improved. General: See triage assessment. Pain: Denies pain. Vital Signs: 19:40 BP 163 / 86; Pulse 100; Resp 18; Temp 97.3; Pulse Ox 97% ; Weight 131.54 kg; Height 5 [facility] ft. 7 in. ; Pain 7/10; 21:42 BP 148 / 78; Pulse 92; Resp 18; Pulse Ox 98% ; vc1 19:40 Body Mass Index 45.42 (131.54 kg, 170.18 cm) 7 19:40 Pain Scale: Adult 7 Lucas Coma Score: 21:22 Eye Response: spontaneous(4). Motor Response: obeys commands(6). Verbal Response: sb4 oriented(5). Total: 15. ED Course: 19:24 Patient arrived in ED. jj6 19:37 Katherine Graff PA-C [facility]. sb4 19:37 Abby Mac MD is Attending Physician. sb4 19:45 Triage completed. jj7 19:45 Arm band placed on right wrist. jj7 20:43 Fidelina Norman, RN is Primary Nurse. vc1 20:46 Patient has correct armband on for positive identification. Bed in low position. Call vc1 light in reach. 21:05 Head Brain Wo Cont CT In Process Unspecified. EDMS 21:23 Dieudonne Lu MD is Referral Physician. sb4 21:40 No provider procedures requiring assistance completed. Patient did not have IV access vc1 during this emergency room visit. 21:41 Provided Education on: f/u with neuro. vc1 Administered Medications: 20:44 Drug: NS 0.9% IV 1000 ml IV at 1 bolus Per protocol; 1000 mL bolus Route: IV; Rate: 1 vc1 bolus; Site: right antecubital; 20:44 Drug: Ketorolac IVP 30 mg IVP once Route: IVP; Site: right antecubital; vc1 20:44 Drug: metoCLOPramide IVP 10 mg IVP once; over 1 to 2 minutes Route: IVP; Site: right vc1 antecubital; 20:44 Drug: diphenhydrAMINE IVP 25 mg IVP once Route: IVP; Site: right antecubital; vc1 Medication: 19:47 VIS not applicable for this client. jj7 Outcome: 21:23 Discharge ordered by MD. norton 21:41 Discharged to home ambulatory, vc1 21:41 Condition: good 21:41 Discharge instructions given to patient, Instructed on discharge instructions, follow up and referral plans. Demonstrated understanding of instructions, follow-up care, 21:43 Patient left the ED. vc1 Signatures: Dispatcher [employer] EDMS Diamond Mcdowell jj6 Fidelina Norman RN RN vc1 Jefferson Armenta RN RN jj7 Katherine Graff PA-C PA-C sb4
[2024-07-06 22:43] VITALS: TEMP 97.3
[2024-07-06 22:44] VITALS: BP 148/78; O2SAT 98
== END 2024-07-05 21:43 | disposition home or self-care (01) ==
LOC: ER 19:22
DX: R51.9 Headache, unspecified (principal)
CPT/HCPCS: 70450; 96374; 96375; 99284; J1200; J2765; J7030

== ENCOUNTER 2025-03-21 04:58 | Emergency (ER) | payer SELFPAY ==
[2025-03-21] MEDS ORDERED: ACETAMINOPHEN 500 MG TAB ONE (05:20)
[2025-03-21] MEDS ORDERED: methocarbamoL 750 MG TAB ONE (05:20)
--- NOTE | 2025-03-21 06:33 | EDPHYS ---
Physician Documentation [facility] Name: Donta Duran Age: 24 yrs Sex: Male : 2000 Arrival Date: 03/21/2025 Time: 04:58 Bed 14 Private MD: ED Physician Pb Colon HPI: 03/21 05:05 This 24 yrs old Male presents to ER via Unassigned with complaints of Ankle sp4 Injury. 03/22 05:06 24-year-old male presents with complaint of ankle injury.. Reported left ankle inverted sp4 inward yesterday. Historical: - Allergies: 03/21 05:12 No Known Allergies; vc1 - Home Meds: 05:12 inhaler use as PRN [Active]; vc1 - PMHx: 05:12 Asthma; vc1 - PSHx: 05:12 Tonsillectomy; vc1 - Immunization history:: Client reports receiving the 2nd dose of the Covid vaccine, Flu vaccine is not up to date. - Infectious Disease History:: Denies. - Social history:: Smoking status: Patient denies any tobacco usage or history of. - Family history:: not pertinent. ROS: 03/22 05:06 Constitutional: Negative for fever, chills, and weight loss, positive left ankle pain sp4 All other systems are negative, Exam: 05:08 Constitutional: This is a well developed, well nourished patient who is awake, alert, sp4 and in no acute distress. Head/Face: Normocephalic, atraumatic. Eyes: Pupils equal round and reactive to light, extra-ocular motions intact. Lids and lashes normal. Conjunctiva and sclera are not injected. Cornea within normal limits. Periorbital areas with no swelling, redness, or edema. ENT: Nares patent. No nasal discharge, no septal abnormalities noted. Tympanic membranes are normal and external auditory canals are clear. Oropharynx with no redness, swelling, or masses, exudates, or evidence of obstruction, uvula midline. Mucous membranes moist. Neck: Trachea midline, no thyromegaly or masses palpated, and no cervical lymphadenopathy. Supple, full range of motion without nuchal rigidity, or vertebral point tenderness. Chest/axilla: Normal chest wall appearance and motion. Nontender with no deformity. No lesions are appreciated. Cardiovascular: Regular rate and rhythm with a normal S1 and S2. No gallops, murmurs, or rubs. Normal PMI, no JVD. No pulse deficits. Respiratory: Lungs have equal breath sounds bilaterally, clear to auscultation and percussion. No rales, rhonchi or wheezes noted. No increased work of breathing, no retractions or nasal flaring. Abdomen/GI: Soft, with normal bowel sounds. No distension or tympany. No guarding or rebound. No evidence of tenderness throughout. Back: No spinal tenderness. No costovertebral tenderness. Skin: Warm, dry with normal turgor. Normal color with no rashes, no lesions, and no evidence of cellulitis. MS/ Extremity: Pulses equal, no cyanosis. Neurovascular intact. Full, normal range of motion. Positive left lateral ankle tenderness Neuro: Awake and alert, GCS 15, oriented to person, place, time, and situation. Cranial nerves II-XII grossly intact. Motor strength 5/5 in all extremities. Sensory grossly intact. Psych: Awake, alert, with orientation to person, place and time. Behavior, mood, and affect are within normal limits Vital Signs: 03/21 05:11 BP 127 / 82; Pulse 77; Resp 16; Temp 97.3; Pulse Ox 97% ; Weight 133.81 kg; Height 5 vc1 ft. 7 in. ; Pain 9/10; 07:04 BP 120 / 80; Pulse 70; Resp 18; Pulse Ox 99% ; Pain 2/10; br2 05:11 Body Mass Index 46.20 (133.81 kg, 170.18 cm) vc1 05:11 Pain Scale: Adult vc1 07:04 Pain Scale: Adult br2 [place] Coma Score: 03/22 05:08 Eye Response: spontaneous(4). Motor Response: obeys commands(6). Verbal Response: sp4 oriented(5). Total: 15. Procedures: 05:07 Splinting: Splint applied to left calf, left Achilles and left heel using Ortho 3D sp4 boot, applied by myself. Examined by me, post splint application: neurovascular intact, 2+ distal pulses palpable, brisk capillary refill noted, Patient tolerated well, Provided crutches. MDM: 03/21 06:24 Medical Screening Exam initiated sp4 03/22 05:06 Differential diagnosis: fracture, sprain, foreign body, arthritis, cellulitis. Data sp4 reviewed: vital signs, nurses notes, radiologic studies. Consideration of Admission/Observation Escalation of care including admission/observation considered. ED course: Left lower extremity Ortho boot was applied. . ED course: Advised to weeks no weightbearing to left lower extremity and use of crutches. 03/21 05:16 Order name: Foot Left 3 View XRAY sp4 03/21 05:16 Order name: Tib Fib Left XRAY sp4 03/21 06:26 Order name: Ortho shoe: Knee high ortho boot; Complete Time: 06:49 sp4 03/21 06:26 Order name: Crutches; Complete Time: 06:49 sp4 Administered Medications: 03/21 05:24 Drug: Acetaminophen PO 1000 mg PO once Route: PO; br2 06:00 Follow up: Response: No adverse reaction br2 05:24 Drug: Methocarbamol PO 1500 mg PO once Route: PO; br2 06:00 Follow up: Response: No adverse reaction br2 Disposition Summary: 03/21/25 06:33 Discharge Ordered Notes: Location: Home sp4 Problem: new sp4 Symptoms: have improved sp4 Condition: Stable sp4 Diagnosis - Acute left ankle sprain lateral ligaments, sp4 - Sprain of other ligament of left ankle, initial encounter sp4 Followup: sp4 - With: Garrett Ha MD - When: 10 - 14 days - Reason: Recheck today's complaints Discharge Instructions: - Discharge Summary Sheet sp4 - Ankle Sprain, [id number] sp4 Forms: - Work release form sp4 - Patient Portal Instructions sp4 - Family Work Release br2 Prescriptions: - naproxen 500 mg Oral tablet - take 1 tablet ORAL route every 8 hours PRN pain; 50 tablet; Refills: 0, Product sp4 Selection Permitted - methocarbamol 750 mg Oral tablet - take 2 tablets ORAL route 3 times per day for 3 days PRN pain; 60 tablet; sp4 Refills: 0, Product Selection Permitted Signatures: Dispatcher [employer] Fidelina Llanes RN RN vc1 Pb Colon MD MD sp4 Lottie Quintanilla RN RN br2
--- NOTE | 2025-03-21 06:33 | ER ---
Nurse's Notes [facility] Name: Donta Duran Age: 24 yrs Sex: Male : 2000 Arrival Date: 03/21/2025 Time: 04:58 Bed 14 Private MD: Diagnosis: Acute left ankle sprain lateral ligaments, ;Sprain of other ligament of left ankle, initial encounter Presentation: 03/21 05:11 Chief complaint: Patient states: twisted left ankle chasing son. Coronavirus screen: vc1 Client denies travel out of the [place] in the last 14 days. At this time, the client does not indicate any symptoms associated with coronavirus-19. Ebola Screen: Patient negative for fever greater than or equal to 101.5 degrees Fahrenheit, and additional compatible Ebola Virus Disease symptoms Patient denies exposure to infectious person. Patient denies travel to an Ebola-affected area in the 21 days before illness onset. No symptoms or risks identified at this time. Initial Sepsis Screen: Does the patient meet any 2 criteria? No. Patient's initial sepsis screen is negative. Does the patient have a suspected source of infection? No. Patient's initial sepsis screen is negative. Risk Assessment: Do you want to hurt yourself or someone else? Patient reports no desire to harm self or others. Onset of symptoms was March 20, 2025. 05:11 Method Of Arrival: Ambulatory vc1 05:11 Acuity: KENYATTA 4 vc1 Triage Assessment: 05:14 General: Appears in no apparent distress. uncomfortable, obese, Behavior is calm, vc1 cooperative, appropriate for age. Pain: Complains of pain in left lateral malleolus and left medial malleolus Pain does not radiate. Pain currently is 9 out of 10 on a pain scale. Aggravated by weight bearing. EENT: No deficits noted. No signs and/or symptoms were reported regarding the EENT system. Neuro: Level of Consciousness is awake, alert, obeys commands, Oriented to person, place, time, situation, Appropriate for age. Cardiovascular: Capillary refill < 3 seconds Patient's skin is warm and dry. Respiratory: Airway is patent Respiratory effort is even, unlabored, Respiratory pattern is regular, symmetrical. GI: No deficits noted. No signs and/or symptoms were reported involving the gastrointestinal system. : No deficits noted. No signs and/or symptoms were reported regarding the genitourinary system. Derm: Skin is intact, is healthy with good turgor, Skin is dry, Skin is normal, Skin temperature is warm. Musculoskeletal: Circulation, motion, and sensation intact. Range of motion: intact in all extremities, Swelling present in left foot. Historical: - Allergies: 05:12 No Known Allergies; vc1 - Home Meds: 05:12 inhaler use as PRN [Active]; vc1 - PMHx: 05:12 Asthma; vc1 - PSHx: 05:12 Tonsillectomy; vc1 - Immunization history:: Client reports receiving the 2nd dose of the Covid vaccine, Flu vaccine is not up to date. - Infectious Disease History:: Denies. - Social history:: Smoking status: Patient denies any tobacco usage or history of. - Family history:: not pertinent. Screenin:14 [facility] ED Fall Risk Assessment (Adult) History of falling in the last 3 months, vc1 including since admission Yes- single mechanical fall (1 pt) Confusion or Disorientation No (0 pts) Intoxicated or Sedated No (0 pts) Impaired Gait No (0 pts) Mobility Assist Device Used No (0 pt) Altered Elimination No (0 pt) Score/Fall Risk Level 0 - 2 = Low Risk Oriented to surroundings, Maintained a safe environment, Educated pt \T\ family on fall prevention, incl call for assistance when getting out of bed, Hourly rounding (assess needs \T\ fall precautionary measures) done. Abuse screen: Denies threats or abuse. Nutritional screening: No deficits noted. Tuberculosis screening: No symptoms or risk factors identified. Assessment: 05:30 Reassessment: Patient and/or family updated on plan of care and expected duration. Pain br2 level reassessed. Patient is alert, oriented x 3, equal unlabored respirations, skin warm/dry/pink. General: Appears uncomfortable, Behavior is. Pain: Complains of pain in left lateral malleolus Pain currently is 9 out of 10 on a pain scale. Neuro: [place] Agitation-Sedation Scale (RASS): 0 - Alert and Calm Level of Consciousness is awake, alert, obeys commands, Oriented to person, place, time, situation. Cardiovascular: Denies chest pain. Respiratory: No deficits noted. GI: No deficits noted. No signs and/or symptoms were reported involving the gastrointestinal system. : No signs and/or symptoms were reported regarding the genitourinary system. EENT: No signs and/or symptoms were reported regarding the EENT system. Derm: Reports pain that is 9 out of 10 on a pain scale. Musculoskeletal: Range of motion: intact in all extremities, Swelling present in left lateral malleolus. Injury Description: twisted. Vital Signs: 05:11 BP 127 / 82; Pulse 77; Resp 16; Temp 97.3; Pulse Ox 97% ; Weight 133.81 kg; Height 5 vc1 ft. 7 in. ; Pain 9/10; 07:04 BP 120 / 80; Pulse 70; Resp 18; Pulse Ox 99% ; Pain 2/10; br2 05:11 Body Mass Index 46.20 (133.81 kg, 170.18 cm) vc1 05:11 Pain Scale: Adult vc1 07:04 Pain Scale: Adult br2 [place] Coma Score: 03/22 05:08 Eye Response: spontaneous(4). Motor Response: obeys commands(6). Verbal Response: sp4 oriented(5). Total: 15. ED Course: 03/21 05:00 Patient arrived in ED. jj6 05:05 Pb Colon MD is Attending Physician. sp4 05:12 Triage completed. vc1 05:13 Arm band placed on left wrist. vc1 05:14 Patient has correct armband on for positive identification. Bed in low position. Call vc1 light in reach. Adult w/ patient. Provided Education on: Plan of care. Pulse ox on. NIBP on. 05:18 Lottie Quintanilla RN is Primary Nurse. br2 05:49 Foot Left 3 View XRAY In Process Unspecified. EDMS 05:49 Tib Fib Left XRAY In Process Unspecified. EDMS 06:32 Garrett Ha MD is Referral Physician. sp4 07:04 Crutch training done. Ortho shoe applied to left foot. br2 07:05 No provider procedures requiring assistance completed. Patient did not have IV access br2 during this emergency room visit. Administered Medications: 05:24 Drug: Acetaminophen PO 1000 mg PO once Route: PO; br2 06:00 Follow up: Response: No adverse reaction br2 05:24 Drug: Methocarbamol PO 1500 mg PO once Route: PO; br2 06:00 Follow up: Response: No adverse reaction br2 Medication: 05:16 VIS not applicable for this client. vc1 Outcome: 06:33 Discharge ordered by . sp4 07:04 Discharged to home ambulatory, br2 07:04 Condition: stable 07:04 Discharge instructions given to patient, Instructed on discharge instructions, Demonstrated understanding of instructions, follow-up care, medications, Prescriptions given X 2, 07:05 Patient left the ED. br2 Signatures: Dispatcher [employer] EDMS Diamond [id number] Fidelina Norman, RN RN vc1 Pb Colon MD MD sp4 Lottie Quintanilla RN RN br2
--- NOTE | 2025-03-21 07:09 | RAD REPORT ---
EXAMINATION: Foot Left 3 View VIEWS: As above CLINICAL INDICATION: Male, 24 years old. left foot pain COMPARISON: No prior exam. IMPRESSION: No acute fracture. No malalignment or dislocation. No significant focal degenerative changes. No radiopaque foreign body.
[2025-03-21 07:10] VITALS: TEMP 97.3
--- NOTE | 2025-03-21 07:10 | RAD REPORT ---
EXAMINATION: Tib Fib Left VIEWS: Two views CLINICAL INDICATION: Male, 24 years old. left tibial pain COMPARISON: No prior exam. IMPRESSION: No acute fracture. No acute soft tissue abnormality. No radiopaque foreign body.
[2025-03-21 07:12] VITALS: BP 120/80; O2SAT 99
== END 2025-03-21 07:05 | disposition home or self-care (01) ==
LOC: ER 04:58
DX: S93.492A Sprain of other ligament of left ankle, initial encounter (principal)
CPT/HCPCS: 99284